=== PATIENT | male | born 1940 | race Caucasian/White ===

== ENCOUNTER 2017-04-16 16:03 | Emergency (ER) | payer OTHER ==
[~2017-04-16] VITALS: Ht 170.2 cm; Wt 59.0 kg
[2017-04-16] MEDS ORDERED: LIDODERM 5% P1 PATCH TD (17:30)
[2017-04-16] MEDS ORDERED: NORCO 5/3251 TABLET PO (17:30)
[2017-04-16 17:45] VITALS: BP 128/92
== END 2017-04-16 17:45 | disposition home or self-care (01) ==
LOC: EME 16:03
DX: M54.40 Lumbago with sciatica, unspecified side (principal); G89.29 Other chronic pain; F17.200 Nicotine dependence, unspecified, uncomplicated
CPT/HCPCS: 99281; 99284